=== PATIENT | female | born 1945 | race Caucasian/White ===

== ENCOUNTER 2017-04-16 09:12 | Day surgery (SDC) | payer MEDICARE, OTHER ==
[~2017-04-16] VITALS: Ht 167.6 cm; Wt 90.7 kg
[2017-04-16] MEDS ORDERED: ARTHRITIS MED (09:27)
[2017-04-16] MEDS ORDERED: CHOL MED (09:27)
[2017-04-16] MEDS ORDERED: MULTI VIT PO (09:27)
[2017-04-16 11:50] VITALS: BP 146/72
== END 2017-04-16 12:18 | disposition home or self-care (01) ==
LOC: ENDO 09:12
PROVIDERS: ATTEND Surgery
PROC: 0DJD8ZZ Inspection of Lower Intestinal Tract, Via Natural or Artificial Opening Endoscopic (ICD-10-PCS; principal; 2017-04-16)
DX: Z12.11 Encounter for screening for malignant neoplasm of colon (principal); K57.30 Diverticulosis of large intestine without perforation or abscess without bleeding; Q43.9 Congenital malformation of intestine, unspecified; E78.5 Hyperlipidemia, unspecified

== ENCOUNTER 2019-03-08 | Emergency (ER) | payer MEDICARE, OTHER ==
[~2019-03-08] MED LIST: ARTHRITIS MED; CHOL MED; MULTI VIT PO
[2019-03-08 15:55] LABS: URINE BILIRUBIN - DIPSTICK NEGATIVE (NEGATIVE); URINE BLOOD DIPSTICK NEGATIVE (NEGATIVE); URINE COLOR YELLOW; URINE GLUCOSE - DIPSTICK NEGATIVE (NEGATIVE); URINE KETONE NEGATIVE (NEGATIVE); URINE LEUK ESTERASE NEGATIVE (NEGATIVE); URINE NITRITE - DIPSTICK NEGATIVE (Negative); URINE PROTEIN - DIPSTICK NEGATIVE (NEG-TRACE); URINE UROBILINOGEN - DIPSTICK 0.2 E.U./dL (0.2)
[2019-03-08] MEDS ORDERED: PRAVASTATIN20 MG PO (16:59)
[2019-03-08] MEDS ORDERED: MEDDOSEPAK PO (17:05)
== END 2019-03-08 17:05 | disposition home or self-care (01) ==
PROVIDERS: Family Medicine
DX: M54.42 Lumbago with sciatica, left side (principal); K59.09 Other constipation